=== PATIENT | female | born 1975 | race Caucasian/White ===

== ENCOUNTER 2016-12-08 07:23 | Inpatient (IN) | payer MEDICAID ==
[~2016-12-08] VITALS: Ht 162.6 cm; Wt 90.0 kg
[~2016-12-08 07:23] MED LIST: FERR240T9 PO; OXYTOCIN 30 UNITS/LR 500 ML BAG IV ONE; PREN1TAB49
[2016-12-08 07:39] VITALS: BP 117/61; PULSE 86; RESP 18
[2016-12-08 07:41] VITALS: Ht 162.6 cm; Wt 90.0 kg
[2016-12-08] MEDS ORDERED: CARBOPROST 250 MCG INJ IM PRN ×3 (08:00→14:00)
[2016-12-08] MEDS ORDERED: MISOPROSTOL 200 MCG TAB PR PRN ×3 (08:00→14:00)
[2016-12-08] MEDS ORDERED: CEFAZOLIN 2 GM/50 ML (PMX) 50 ML IV SCH (08:00)
[2016-12-08] MEDS ORDERED: OXYTOCIN 30 UNITS/LR 500 ML IV SCH (08:00)
[2016-12-08] MEDS ORDERED: METHYLERGONOVINE 0.2 MG INJ IM PRN ×3 (08:00→14:00)
[2016-12-08] MEDS ORDERED: OXYTOCIN 30 UNITS/LR 500 ML IV PRN ×3 (08:00→14:00)
[2016-12-08 08:06] LABS: ADD SCAN DIFF NO
[2016-12-08 08:09] LABS: BASOPHILS % 0.4 % (0.0-2.0); EOSINOPHILS # 0.4 10^3/ul (0.0-0.5); EOSINOPHILS % 4.5 % (0.0-7.0); HEMATOCRIT 25.9 % (37.0-47.0); HEMOGLOBIN 8.1 g/dl (12.0-16.0); LYMPHOCYTES % 24.8 % (15.0-51.0); MEAN CORPUSCULAR HEMOGLOBIN 21.9 pg (29.0-33.0); MEAN CORPUSCULAR HGB CONC 31.3 g/dl (32.0-37.0); MEAN PLATELET VOLUME 10.6 fl (7.4-10.4); MONOCYTE # 0.5 10^3/ul (0.3-0.9); MONOCYTES % 6.6 % (0.0-11.0); NEUTROPHIL # 5.1 10^3/ul (1.6-7.5); NEUTROPHILS % 62.6 % (39.0-77.0); NUCLEATED RED BLOOD CELLS% 0.4 /100WBC (0.0-0.0); PLATELET COUNT 316 10^3/UL (140-415); RED CELL DISTRIBUTION WIDTH 17.9 % (11.5-14.5); WHITE BLOOD COUNT 8.2 10^3/ul (4.8-10.8)
[2016-12-08 08:29] LABS: INR 0.92; PROTIME 12.4 Sec (12.2-14.2)
[2016-12-08 08:30] LABS: PARTIAL THROMBOPLASTIN TIME 25.1 Sec (25.0-35.0)
[2016-12-08] MEDS ORDERED: LACTATED RINGER'S 1,000 ML IV SCH (08:30)
[2016-12-08] MEDS ORDERED: LACTATED RINGER'S 1,000 ML IV ONE (08:30)
[2016-12-08] MEDS ORDERED: morphine SULFATE/PF (10 MG/10 ML) INJ ONE (09:31)
--- NOTE | 2016-12-08 09:35 | HP ---
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14 history of total of 3 including present one previous one a spontaneous Allergies denies allergy to any known medication Social habit denies smoking or drinking or using illicit drug Family history unremarkable Review of system within normal Physical exam and 5 feet 4 temperature 98 pulse 78 respiration 18 blood pressure is 112/61 Head ears nose and throat negative Neck supple no thyromegaly Lungs clear to P&A Heart normal sinus rhythm no murmur Abdomen fundal height 37 cm from symphysis pubis with the heart rate category 1 Pelvic examination deferred Extremities no edema mild superficial varicosities Impression Intrauterine at 39 weeks gestation history of previous section , due to severe anemia transfusion of 2 units of packed cells discussed with the patient risks and benefits were explained patient agreed to receive the blood transfusion at the time of her , at this time she is being prepared to undergo the above surgery she has been counseled regarding the complication of the surgery including but not limited to bowel and bladder injury infection wound hematoma hemorrhage she is willing to go ahead with the operation Chief Complaint: 39 weeks history of previous Estimated Due Date: Dec 15, 2016 : 3 Para: 1 Spontaneous : 1 Care: Limited Care Ultrasounds: Normal mid trimester US Obstetrical Complications: None Medical Complications: None Past Family/Social History * Past Medical, Surgical, Family and Obstetric Histories reviewed from chart. Rubella: immune RPR/VDRL: Negative GBS Status: Negative HBsAG: Negative OB Admission Exam Vital Signs Vital Signs Vital Signs Date Time Temp Pulse Resp B/P Pulse Ox O2 Delivery O2 Flow Rate FiO2 12/08/16 07:39 98.0 86 18 117/61 Room Air Physical Exam HEENT: WNL Heart: Rhythm Normal Lungs: Clear, Equal Abdomen: WNL Extremities: Normal Cervical Dilatation: None Station: -2 Heart Rate: 130's Accelerations: Accelerations Present Decelerations: No Decelerations Varibility: Moderate Contractions on Admission: >10 Minutes Apart Intensity: Mild Last 72 hours Lab Results CBC & BMP 12/08/16 07:20 OB Assessment/Plan Reason for admission: other (Intraoperative blood transfusion 2 units of packed cell, repeat ) Plan: Section DELORIS QUIROZ MD Dec 08, 2016 09:34
[2016-12-08] MEDS ORDERED: PHENYLephrine (100 MCG/ML) 5ML SYG ONE (09:48)
[2016-12-08] MEDS ORDERED: ONDANSETRON 4 MG INJ ONE (10:03)
[2016-12-08] MEDS ORDERED: EPHEDrine SULFATE 50 MG/5 ML SYG ONE (10:15)
[2016-12-08] MEDS ORDERED: FENTAnyl 50 MCG/ML VIAL ONE (10:22)
[2016-12-08] MEDS ORDERED: MEPERIDINE 25 MG INJ IV PRN (10:30)
[2016-12-08] MEDS ORDERED: HYDROmorphONE (0.2 MG/ML) 10ML SYG IV PRN ×3 (10:30)
[2016-12-08] MEDS ORDERED: NALOXONE (0.4 MG/ML) INJ IV PRN (10:30)
[2016-12-08] MEDS ORDERED: DIPHENHYDRAMINE 50 MG INJ IV PRN ×2 (10:30)
[2016-12-08] MEDS ORDERED: KETOROLAC 30 MG INJ IV ONE (10:30)
[2016-12-08] MEDS ORDERED: FENTAnyl 50 MCG/ML VIAL IV PRN ×2 (10:30)
[2016-12-08] MEDS ORDERED: ONDANSETRON 4 MG INJ IV PRN ×2 (10:30)
[2016-12-08] MEDS ORDERED: PROCHLORPERAZINE 10 MG INJ IV PRN (10:30)
[2016-12-08] MEDS ORDERED: HYDROmorphONE 1 MG/ML SYG IV PRN ×2 (10:30)
[2016-12-08] MEDS ORDERED: METOCLOPRAMIDE 10 MG INJ IV PRN (10:30)
[2016-12-08] MEDS: LACTATED RINGER'S 1,000 ML IV SCH (13:35)
[2016-12-08] MEDS: OXYTOCIN 30 UNITS/LR 500 ML IV SCH ×6 (13:35→23:52)
[2016-12-08 14:00] VITALS: BP 110/55; PULSE 74; RESP 18
[2016-12-08] MEDS ORDERED: LANOLIN 7 GM TUBE TOP PRN (14:00)
[2016-12-08] MEDS ORDERED: CEFAZOLIN 1 GM/50 ML (PMX) 50 ML IVPB SCH ×2 (14:00)
[2016-12-08] MEDS ORDERED: OXYCODONE/ACETAMINOPHEN (5/325) TAB PO PRN (14:00)
[2016-12-08] MEDS ORDERED: ACETAMINOPHEN/CODEINE #3 TAB PO PRN ×2 (14:00)
--- NOTE | 2016-12-08 14:11 | OPR ---
Operative Report Planned Procedure Free Text/Dictation 41 years old female 3 para 1 EDC December 15, 2006 admitted at 39 weeks with a history of previous and request for voluntary sterilization bilateral tubal ligation for repeat tubal ligation Procedure date Dec 08, 2016 Procedure(s) Repeat bilateral tubal ligation Performed by: DELORIS QUIROZ MD Assisting provider: SAMI MARTINEZ MD Anesthesiologist: ANNABEL CAMEJO Pre-procedure diagnosis 39 weeks history of previous request for bilateral tubal ligation Anesthesia Type: spinal Procedure Description Under satisfactory spinal anesthesia, patient was prepped and draped and placed in a supine position, tilted to the left. Pfannenstiel incision was made , carried through the subcutaneous tissue. Bleeders brought under control with electrocautery. Fascia incised to the length of the incision. Rectus muscles from the fascia, divided midline. Peritoneum exposed, entered through a transverse incision. Exploration of abdomen revealed gravid uterus. Bladder flap was developed. Transverse incision was made in the lower segment of the uterus. Amniotic sac ruptured. Clear [] amniotic fluid noted. Live baby girl was delivered from occiput posterior [] Nasal oropharyngeal suction was performed. baby was handed to the team for immediate attention. The placenta was delivered manually intact. Uterine cavity was cleaned with wet sponge and drainage established. Uterus closed in 2 layers using [] Monocryl #1 in continuous fashion. Bilateral tubal ligation performed by identifying the right fallopian tube the ampullary section of the tube grasped with a [place] a loop was top of the loop three quarter of inch was excised content of the tube was cauterized specimen submitted to the pathology same procedure performed for the opposite side, peritoneal cavity irrigated with warm saline. Sponge, needle and instrument count reported to be correct. Abdominal peritoneum closed with [ ] 2-0 chromic catgut continuously. Rectus muscle approximated with a few [ interrupted 2-0 chromic catgut]. Fascia closed with [#1 PDS], subcutaneous tissue approximated and repaired with few interrupted 2-0 chromic catgut skin closed with rishabh. Estimated blood loss [600 mL. Urine bag contained 200 cc clear urine final sponge needle and instrument count was correct patient transferred to recovery room in good condition. Post-Procedure Post-procedure diagnosis 39 weeks history of previous request for tubal ligation Findings: Live Baby [girl], Apgars 8 and 9 [ weight [3830], position occiput posterior [] , [] presentation vertex with no nuchal cord Complications: None Pt Condition post procedure: stable Post-procedure comments Immediate post tubal ligation patient's condition satisfactory and stable Physician Certification I, the undersigned physician, hereby certify that I have discussed the procedure described in this consent form with this patient (or the patient's legal senior sales representative), including: * The risk and benefits of the procedure; * Any adverse reactions that may reasonably be expected to occur; * Any alternative efficacious methods of treatment which may be medically viable ; * The potential problems that may occur during recuperation; * Potential for blood transfusion and associated risks/benefits; and * Any research or economic interest I may have regarding this treatment. I further certify that the patient/legally responsible person was encouraged to ask question and that all questions were answered. DELORIS QUIROZ MD Dec 08, 2016 14:03
[2016-12-08 14:45] VITALS: BP 109/57; PULSE 75; RESP 18
[2016-12-08 16:06] VITALS: BP 114/58; PULSE 72; RESP 18
[2016-12-08] MEDS: KETOROLAC 30 MG INJ IV PRN (17:38)
[2016-12-08 19:30] VITALS: BP 110/59; PULSE 69; RESP 18
[2016-12-09] MEDS: OXYTOCIN 30 UNITS/LR 500 ML IV SCH ×12 (01:35→21:35)
[2016-12-09] MEDS: KETOROLAC 30 MG INJ IV PRN (03:40)
[2016-12-09] MEDS: LACTATED RINGER'S 1,000 ML IV SCH ×4 (03:55→21:35)
[2016-12-09 04:10] VITALS: BP 105/70; PULSE 69; RESP 18
[2016-12-09 08:00] VITALS: BP 103/56; PULSE 67; RESP 18
[2016-12-09 08:08] LABS: ADD SCAN DIFF NO
[2016-12-09 08:17] LABS: BASOPHILS % 0.2 % (0.0-2.0); EOSINOPHILS # 0.3 10^3/ul (0.0-0.5); EOSINOPHILS % 3.2 % (0.0-7.0); HEMATOCRIT 24.5 % (37.0-47.0); HEMOGLOBIN 7.5 g/dl (12.0-16.0); LYMPHOCYTES # 1.9 10^3/ul (0.8-2.9); LYMPHOCYTES % 21.5 % (15.0-51.0); MEAN CORPUSCULAR HEMOGLOBIN 22.7 pg (29.0-33.0); MEAN CORPUSCULAR HGB CONC 30.6 g/dl (32.0-37.0); MEAN PLATELET VOLUME 10.6 fl (7.4-10.4); MONOCYTE # 0.6 10^3/ul (0.3-0.9); MONOCYTES % 6.7 % (0.0-11.0); NUCLEATED RED BLOOD CELLS% 0.3 /100WBC (0.0-0.0); PLATELET COUNT 221 10^3/UL (140-415); RED BLOOD COUNT 3.31 10^6/ul (4.20-5.40); RED CELL DISTRIBUTION WIDTH 20.3 % (11.5-14.5)
[2016-12-09] MEDS: SENNA/DOCUSATE NA (8.6MG/50MG) TAB PO SCH ×2 (09:37→21:12)
[2016-12-09] MEDS: OXYCODONE/ACETAMINOPHEN (5/325) TAB PO PRN ×3 (10:46→21:13)
[2016-12-09] MEDS: IBUPROFEN 600 MG TAB PO SCH ×3 (12:29→23:37)
[2016-12-09 12:30] VITALS: BP 107/54; PULSE 74; RESP 18
--- NOTE | 2016-12-09 12:36 | PN ---
Date/Time of Note Date/Time of Note DATE: 12/09/16 TIME: 12:31 OB Subjective Subjective Subjective Post day 1 Afebrile vital signs are stable her hemoglobin is 7.5 but patient is not orthostatic denies lightheadedness transfusion of 2 units of packed cells recommended patient will continue ambulation if not dizzy or lightheaded prefers no transfusion Laboratory Tests Test 12/09/16 06:24 12/09/16 07:18 Lab Scanned Report BLOOD [id number] White Blood Count 9.010^3/ul Red Blood Count 3.3110^6/ul Hemoglobin 7.5g/dl Hematocrit 24.5% Mean Corpuscular Volume 74.0fl Mean Corpuscular Hemoglobin 22.7pg Mean Corpuscular Hemoglobin Concent 30.6g/dl Red Cell Distribution Width 20.3% Platelet Count 82999^3/UL Mean Platelet Volume 10.6fl Neutrophils % 67.0% Lymphocytes % 21.5% Monocytes % 6.7% Eosinophils % 3.2% Basophils % 0.2% Nucleated Red Blood Cells % 0.3/100WBC Neutrophils # 6.010^3/ul Lymphocytes # 1.910^3/ul Monocytes # 0.610^3/ul Eosinophils # 0.310^3/ul Basophils # 0.010^3/ul Nucleated Red Blood Cells # 0.010^3/ul Current Medications Medications (Trade) Dose Ordered Sig/Taylor Route PRN Reason Start Time Stop Time Status Last Admin Dose Admin Cefazolin Sodium/ Dextrose 50 ml @ 100 mls/hr ONCE IV 12/08/16 08:00 12/08/16 13:41 DC Oxytocin/Lactated Ringer's 500 ml @ 125 mls/hr ONCE IV 12/08/16 08:00 12/08/16 13:41 DC 12/08/16 11:58 Oxytocin/Lactated Ringer's 500 ml @ 0 mls/hr ONCE PRN IV For Hemorrhage Management 12/08/16 08:00 12/08/16 13:41 DC Methylergonovine Maleate (Methergine) 0.2 mg ONCE PRN IM VAGINAL BLEEDING 12/08/16 08:00 12/08/16 13:41 DC Carboprost Tromethamine (Hemabate) 250 mcg ONCE PRN IM VAGINAL BLEEDING 12/08/16 08:00 12/08/16 13:42 DC Misoprostol 1000 mcg 1,000 mcg ONCE PRN MD VAGINAL BLEEDING 12/08/16 08:00 12/08/16 13:42 DC Lactated Ringer's 1,000 ml @ 1,000 mls/hr Q1H ONCE IV 12/08/16 08:30 12/08/16 09:29 DC 12/08/16 08:12 Lactated Ringer's (Lr) 1,000 ml @ 125 mls/hr Q8H IV 12/08/16 08:30 12/08/16 13:42 DC 12/08/16 08:45 Morphine Sulfate (Duramorph) 10 mg STK-MED ONCE .ROUTE 12/08/16 09:31 12/08/16 09:32 DC Phenylephrine HCl (Denis-Synephrine Inj Syg) 500 mcg STK-MED ONCE .ROUTE 12/08/16 09:48 12/08/16 09:49 DC Ondansetron HCl (Zofran Inj) 4 mg STK-MED ONCE .ROUTE 12/08/16 10:03 12/08/16 10:04 DC Ephedrine Sulfate 50 mg STK-MED ONCE .ROUTE 12/08/16 10:15 12/08/16 10:16 DC Naloxone HCl (Narcan) 0.1 mg Q2M PRN IV FOR RESP RATE 8 OR LESS 12/08/16 10:30 12/08/16 13:42 DC Ketorolac Tromethamine (Toradol) 30 mg Q6H PRN IV PAIN 12/08/16 10:30 12/09/16 10:29 DC 12/09/16 03:40 Hydromorphone HCl (Dilaudid) 0.2 mg Q3H PRN IV PAIN LEVEL 1-5 12/08/16 10:30 12/09/16 10:29 DC Hydromorphone HCl (Dilaudid) 0.4 mg Q3H PRN IV PAIN LEVEL 6-10 12/08/16 10:30 12/09/16 10:29 DC Diphenhydramine HCl (Benadryl) 25 mg Q6H PRN IV ITCHING 12/08/16 10:30 12/09/16 10:29 DC Ondansetron HCl (Zofran Inj) 4 mg Q6H PRN IV NAUSEA AND/OR VOMITING 12/08/16 10:30 12/09/16 10:29 DC Prochlorperazine (Compazine Inj) 10 mg ONCE PRN IV NAUSEA AND/OR VOMITING 12/08/16 10:30 12/09/16 10:29 DC Hydromorphone HCl (Dilaudid (Rec)) 0.2 mg PACU ORDER PRN IV MILD PAIN LEVEL 1-3 12/08/16 10:30 12/08/16 13:42 DC Hydromorphone HCl (Dilaudid (Rec)) 0.4 mg PACU ORDER PRN IV MODERATE PAIN LEVEL 4-6 12/08/16 10:30 12/08/16 13:42 DC Hydromorphone HCl (Dilaudid (Rec)) 0.6 mg PACU ORDER PRN IV SEVERE PAIN LEVEL 7-10 12/08/16 10:30 12/08/16 13:42 DC Fentanyl (Sublimaze) 25 mcg PACU ORDER PRN IV MILD PAIN LEVEL 1-3 12/08/16 10:30 12/08/16 13:42 DC Fentanyl (Sublimaze) 50 mcg PACU ODER PRN IV MODERATE PAIN LEVEL 4-6 12/08/16 10:30 12/08/16 13:42 DC Ketorolac Tromethamine (Toradol) 30 mg PACU ORDER ONCE IV 12/08/16 10:30 12/08/16 11:06 DC 12/08/16 12:00 Ondansetron HCl (Zofran Inj) 4 mg PACU ORDER PRN IV NAUSEA AND/OR VOMITING 12/08/16 10:30 12/08/16 13:42 DC Metoclopramide HCl (Reglan) 10 mg PACU ORDER PRN IV NAUSEA AND/OR VOMITING 12/08/16 10:30 12/08/16 13:42 DC Meperidine HCl (Demerol) 25 mg PACU ORDER PRN IV POST-OP RIGORS 12/08/16 10:30 12/08/16 13:42 DC Diphenhydramine HCl (Benadryl) 25 mg PACU ORDER PRN IV PRURITUS 12/08/16 10:30 12/08/16 13:42 DC Fentanyl (Sublimaze) 100 mcg STK-MED ONCE .ROUTE 12/08/16 10:22 12/08/16 10:23 DC Acetaminophen/ Codeine Phosphate (Tylenol No.3) 1 tab Q4H PRN PO PAIN LEVEL 4-6 12/08/16 14:00 Acetaminophen/ Codeine Phosphate (Tylenol No.3) 2 tab Q4H PRN PO PAIN LEVEL 7-10 12/08/16 14:00 Oxycodone/ Acetaminophen (Percocet (5/ 325)) 1 tab Q4H PRN PO PAIN LEVEL 4-6 12/08/16 14:00 Oxycodone/ Acetaminophen (Percocet (5/ 325)) 2 tab Q4H PRN PO PAIN LEVEL 7-10 12/08/16 14:00 12/09/16 10:46 Ibuprofen (Motrin) 600 mg Q6 PO 12/09/16 12:00 12/09/16 12:29 Simethicone (Mylicon) 160 mg Q8H PRN PO DISTENSION/GAS/BLOATING 12/08/16 14:00 Senna/Docusate Sodium (Senokot-S) 1 tab BID PO 12/09/16 09:00 12/09/16 09:37 Lanolin (Nqq-D-Jltizj) 1 applic BEDSIDE MEDICATION PRN TOP BEDSIDE FOR KATHY TO NIPPLES 12/08/16 14:00 Diphtheria/ Tetanus/Acell Pertussis 0.5 ml 0.5 ml ONCE ONCE IM* 12/11/16 09:00 12/11/16 09:01 Oxytocin/Lactated Ringer's 500 ml @ 0 mls/hr ONCE PRN IV For Hemorrhage Management 12/08/16 14:00 Methylergonovine Maleate (Methergine) 0.2 mg ONCE PRN IM VAGINAL BLEEDING 12/08/16 14:00 Carboprost Tromethamine (Hemabate) 250 mcg ONCE PRN IM VAGINAL BLEEDING 12/08/16 14:00 Misoprostol 1000 mcg 1,000 mcg ONCE PRN MD VAGINAL BLEEDING 12/08/16 14:00 Cefazolin Sodium 50 ml @ 100 mls/hr ONCE IVPB 12/08/16 14:00 12/08/16 14:29 DC 12/08/16 14:25 Oxytocin/Lactated Ringer's 500 ml @ 125 mls/hr Q4H IV 12/08/16 13:35 12/08/16 23:52 Lactated Ringer's 1,000 ml @ 125 mls/hr Q8H IV 12/08/16 13:35 12/09/16 03:55 Oxytocin/Lactated Ringer's 500 ml @ 0 mls/hr ONCE PRN IV For Hemorrhage Management 12/08/16 14:00 Methylergonovine Maleate (Methergine) 0.2 mg ONCE PRN IM VAGINAL BLEEDING 12/08/16 14:00 Carboprost Tromethamine (Hemabate) 250 mcg ONCE PRN IM VAGINAL BLEEDING 12/08/16 14:00 Misoprostol 1000 mcg 1,000 mcg ONCE PRN MD VAGINAL BLEEDING 12/08/16 14:00 Cefazolin Sodium 50 ml @ 100 mls/hr ONCE IVPB 12/08/16 14:00 12/08/16 14:00 DC Oxytocin/Lactated Ringer's 500 ml @ 125 mls/hr Q4H IV 12/08/16 13:35 DELORIS QUIROZ MD Dec 09, 2016 12:36
[2016-12-09 16:00] VITALS: BP 101/59; PULSE 74; RESP 18
[2016-12-09 20:00] VITALS: BP 110/64; PULSE 74; RESP 20
[2016-12-10] MEDS: OXYTOCIN 30 UNITS/LR 500 ML IV SCH ×6 (01:35→09:35)
[2016-12-10 04:10] VITALS: BP 118/61; PULSE 75; RESP 20
[2016-12-10] MEDS: IBUPROFEN 600 MG TAB PO SCH ×4 (05:35→23:44)
[2016-12-10] MEDS: LACTATED RINGER'S 1,000 ML IV SCH (05:35)
[2016-12-10 08:00] VITALS: BP 119/54; PULSE 80; RESP 80
[2016-12-10] MEDS: OXYCODONE/ACETAMINOPHEN (5/325) TAB PO PRN (09:32)
[2016-12-10] MEDS: SENNA/DOCUSATE NA (8.6MG/50MG) TAB PO SCH ×2 (09:32→21:39)
--- NOTE | 2016-12-10 11:33 | CONS ---
Date/Time of Note Date/Time of Note DATE: 12/10/16 TIME: 11:30 Consultation Date/Type/Reason Admit Date/Time Dec 08, 2016 at 07:23 Initial Consult Date 12/10/16 Type of Consultation: Anesthesiology Reason for Consultation Follow up 24 HR Interval Summary Free Text/Dictation Pt seen and examined at bedside is POD#2 s/p C/S. Pt received spinal duramorph for post-op pain relief and states she is currently doing well without pain. She is ambulating and eating well. No N/V/D/C/JC/Back pain/Numbness in extremities. Will continue to follow. Exam/Review of Systems Vital Signs Vitals Vital Signs Date Time Temp Pulse Resp B/P Pulse Ox O2 Delivery O2 Flow Rate FiO2 12/10/16 08:00 98.0 80 80 119/54 Room Air Intake and Output 12/09/16 12/09/16 12/10/16 15:00 23:00 07:00 Intake Total 500 ml Output Total 1300 ml Balance -800 ml Results Result Diagram: 12/09/16 0718 12/08/16 0740 Medications Medications Current Medications Acetaminophen/ Codeine Phosphate (Tylenol No.3) 1 tab Q4H PRN PO PAIN LEVEL 4-6 ; Start 12/08/16 at 14:00 Acetaminophen/ Codeine Phosphate (Tylenol No.3) 2 tab Q4H PRN PO PAIN LEVEL 7- 10; Start 12/08/16 at 14:00 Oxycodone/ Acetaminophen (Percocet (5/ 325)) 1 tab Q4H PRN PO PAIN LEVEL 4-6; Start 12/08/16 at 14:00 Oxycodone/ Acetaminophen (Percocet (5/ 325)) 2 tab Q4H PRN PO PAIN LEVEL 7-10 Last administered on 12/10/16 09:32; Admin Dose 2 TAB; Start 12/08/16 at 14:00 Ibuprofen (Motrin) 600 mg Q6 PO Last administered on 12/10/16 05:35; Admin Dose 600 MG; Start 12/09/16 at 12:00 Simethicone (Mylicon) 160 mg Q8H PRN PO DISTENSION/GAS/BLOATING Last administered on 12/10/16 05:35; Admin Dose 160 MG; Start 12/08/16 at 14:00 Senna/Docusate Sodium (Senokot-S) 1 tab BID PO Last administered on 12/10/16 09:32; Admin Dose 1 TAB; Start 12/09/16 at 09:00 Diphtheria/ Tetanus/Acell Pertussis 0.5 ml 0.5 ml ONCE ONCE IM* ; Start 12/11/16 at 09:00; Stop 12/11/16 at 09:01 Oxytocin/Lactated Ringer's 500 ml @ 0 mls/hr ONCE PRN IV For Hemorrhage Management; Start 12/08/16 at 14:00 Methylergonovine Maleate (Methergine) 0.2 mg ONCE PRN IM VAGINAL BLEEDING; Start 12/08/16 at 14:00 Carboprost Tromethamine (Hemabate) 250 mcg ONCE PRN IM VAGINAL BLEEDING; Start 12/08/16 at 14:00 Misoprostol 1000 mcg 1,000 mcg ONCE PRN MD VAGINAL BLEEDING; Start 12/08/16 at 14:00 Oxytocin/Lactated Ringer's 500 ml @ 125 mls/hr Q4H IV Last administered on 23:52; Admin Dose 125 MLS/HR; Start 12/08/16 at 13:35 Lactated Ringer's 1,000 ml @ 125 mls/hr Q8H IV Last administered on 12/09/16 03:55; Admin Dose 125 MLS/HR; Start 12/08/16 at 13:35 Oxytocin/Lactated Ringer's 500 ml @ 0 mls/hr ONCE PRN IV For Hemorrhage Management; Start 12/08/16 at 14:00 Methylergonovine Maleate (Methergine) 0.2 mg ONCE PRN IM VAGINAL BLEEDING; Start 12/08/16 at 14:00 Carboprost Tromethamine (Hemabate) 250 mcg ONCE PRN IM VAGINAL BLEEDING; Start 12/08/16 at 14:00 Misoprostol 1000 mcg 1,000 mcg ONCE PRN MD VAGINAL BLEEDING; Start 12/08/16 at 14:00 Oxytocin/Lactated Ringer's 500 ml @ 125 mls/hr Q4H IV ; Start 12/08/16 at 13:35 ANNABEL CAMEJO Dec 10, 2016 11:32
[2016-12-10 16:00] VITALS: BP 111/75; PULSE 65; RESP 18
[2016-12-10] MEDS ORDERED: NA PHOSPHATE/BIPHOS 133 ML ENEMA PR ONE (16:30)
--- NOTE | 2016-12-10 16:31 | PN ---
Date/Time of Note Date/Time of Note DATE: 12/10/16 TIME: 16:30 OB Subjective Subjective Subjective Post day 2 Afebrile vital signs stable abdomen soft bowel sound present no BM extremity normal ambulation encouraged enema recommended DELORIS QUIROZ MD Dec 10, 2016 16:31
[2016-12-10 19:30] VITALS: BP 116/62; PULSE 80
[2016-12-11 04:30] VITALS: BP 110/53; PULSE 86; RESP 20
[2016-12-11] MEDS: IBUPROFEN 600 MG TAB PO SCH ×2 (05:40→11:38)
[2016-12-11 08:00] VITALS: BP 103/50; PULSE 72; RESP 18
[2016-12-11] MEDS ORDERED: DIPHTH/TET/ACEL PERTUSS (ADULT) 0.5 ML VIAL IM* ONE (09:00)
[2016-12-11] MEDS: SENNA/DOCUSATE NA (8.6MG/50MG) TAB PO SCH (09:22)
--- NOTE | 2016-12-11 12:53 | PD.PPDC ---
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
--- NOTE | 2016-12-11 12:56 | DS ---
Date/Time of Note Date/Time of Note DATE: 12/11/16 TIME: 12:54 Discharge Summary Admission/Discharge Info Admit Date/Time Dec 08, 2016 at 07:23 Discharge Date/Time December 11 at 1245 Discharge Diagnosis Post repeat bilateral tubal ligation day 3 Patient Condition: Good Procedures Repeat and bilateral tubal ligation Hospital Course Satisfactory recovery Home Meds Reported Medications Ferrous Gluconate (Iron) 1 Tab Tablet, 1 TAB PO DAILY 09/10/14 Vits W-Ca,Fe,Fa(<1MG) () 1 Tab Tablet 08/13/11 Follow-up Plan Appointment clinic in 4 days to [facility] Primary Care Provider Care Physician No Primary Time spent on discharge: < 30 minutes DELORIS QUIROZ MD Dec 11, 2016 12:56
[2016-12-11] MEDS ORDERED: CEFTRIAXONE 2 GM INJ IM ONE ×2 (13:00→14:00)
== END 2016-12-11 15:00 | disposition home or self-care (01) | DRG 766 ==
LOC: L-D 07:23 → PP1 13:59
PROVIDERS: ADMIT Obstetrics & Gynecology; ATTEND Obstetrics & Gynecology
PROC: 0UL70ZZ Occlusion of Bilateral Fallopian Tubes, Open Approach (ICD-10-PCS; 2016-12-08)
PROC: 10D00Z1 Extraction of Products of Conception, Low, Open Approach (ICD-10-PCS; principal; 2016-12-08 07:30)
DX: O34.211 Maternal care for low transverse scar from previous cesarean delivery (principal); Z30.2 Encounter for sterilization; Z3A.39 39 weeks gestation of pregnancy; Z37.0 Single live birth
CPT/HCPCS: 36430; 82947; 85025; 85610; 85730; 86592; 86850; 86900; 86901; 86920; 88302; 90715; 99464; J0690; J1885; J2274; J2370; J2405; J2590; J3010; J7120; P9016